=== PATIENT | female | born 1970 | race Caucasian/White ===

== ENCOUNTER 2017-12-05 21:37 | Emergency (ER) | payer OTHER ==
[2017-12-05 23:33] LABS: HIV (1/2) Antibody/Antigen Non-Reactive (NonReactive); Hep C IgG Ab Non-Reactive (NonReactive); Hep C Index 0.11 S/CO (0-0.79)
[2017-12-06 00:37] LABS: HBSAB Concentration 263.52 mIU/mL; Hep B Surf AB Reactive (NonReactive)
== END 2017-12-06 00:02 | disposition home or self-care (01) ==
LOC: ERS 21:37
DX: Z77.21 Contact with and (suspected) exposure to potentially hazardous body fluids (principal)
CPT/HCPCS: 36415; 86706; 86803; 87389; 99283

== ENCOUNTER 2021-11-13 14:17 | Outpatient (CLI) | payer OTHER ==
[2021-11-13 15:16] LABS: #Basophils 0.1 10x3/uL (0.0-0.2); #Eosinphils 0.1 10x3/uL (0.0-0.5); #Monocytes 0.4 10x3/uL (0.0-1.1); #Neutrophils 5.3 10x3/uL (1.5-8.4); %Basophils 0.8 % (0.0-2.0); %Eosinophils 0.8 % (0.0-6.0); %Neutrophils 73.1 % (40.0-75.0); Hemoglobin 12.8 g/dL (12.0-15.5); Mean Corpuscular HGB CONC 31.8 g/dL (32.0-36.0); Mean Corpuscular Hemoglobin 30.2 pg (27.0-33.0); Mean Corpuscular Volume 94.8 fl (81.6-98.3); Mean Platelet Volume 12.9 fl (7.4-10.4); Platelet Count 242 10x3/uL (150-450); RBC Distribution Width 12.2 % (11.5-14.5); Red Blood Cell (RBC) Count 4.24 10x6/uL (3.90-5.03); White Blood Cell (WBC) Count 7.2 10x3/uL (3.5-10.5)
[2021-11-13 15:59] LABS: Bilirubin Neg (Negative); Blood, Urine Negative (Negative); Clarity Clear (Clear); Glucose, Urine (Dipstick) Normal (Negative); Ketone, Urine Negative (Negative); Leukocyte Negative (Negative); Nitrite Negative (Negative); Protein, Urine (Dipstick) Negative (Neg-Trace); Urobilinogen Normal mg/dL (Less than 2); pH, Urine 6.5 (5.0-9.0)
[2021-11-14 10:23] LABS: SARS-CoV-2 PCR by NAA Not Detected (NotDetected)
== END 2021-11-13 14:18 | disposition home or self-care (01) ==
LOC: LABBT 14:17
PROVIDERS: ATTEND Orthopaedic Surgery Hand Surgery
DX: Z01.818 Encounter for other preprocedural examination (principal); Z20.822 Contact with and (suspected) exposure to COVID-19
CPT/HCPCS: 81003; 85025; 93005; 93010; U0003; U0005

== ENCOUNTER 2021-11-16 06:06 | Observation (INO) | payer OTHER ==
[2021-11-14 09:49] VITALS: BMI 29.2
[2021-11-16] MEDS ORDERED: Fentanyl 100 MCG/2 ML VIAL ONE ×3 (06:12→13:26)
[2021-11-16] MEDS ORDERED: Midazolam HCl 2 mg/2 ml Vial ONE ×2 (06:12→07:31)
[2021-11-16] MEDS ORDERED: Thrombin 5000 UNITS/5 ML VIAL ONE ×2 (06:21→08:25)
[2021-11-16] MEDS ORDERED: Neomycin-Polymyxin 1 ML AMP ONE (06:21)
[2021-11-16] MEDS ORDERED: Bacitracin Zinc Ointment 30 gm TUBE ONE (06:21)
[2021-11-16] MEDS ORDERED: EPINEPHrine 1 MG/ML AMP ONE (06:21)
[2021-11-16] MEDS ORDERED: Bupivacaine PF 0.5% 30 ML VIAL ONE (06:21)
[2021-11-16] MEDS ORDERED: PHENYLEPHRINE-NS 100 MCG/ML 10 ML SYRINGE ONE (07:30)
[2021-11-16] MEDS ORDERED: PROPOFOL 200 MG/20 ML VIAL ONE (07:30)
[2021-11-16] MEDS ORDERED: ePHEDrine 50 MG/ML VIAL ONE (07:30)
[2021-11-16] MEDS ORDERED: Dexamethasone 20 MG/5 ML VIAL ONE (07:30)
[2021-11-16] MEDS ORDERED: Ondansetron PF 4 MG/2 ML Vial ONE (07:30)
[2021-11-16] MEDS ORDERED: Lidocaine 1% PF 5 ML VIAL ONE ×2 (07:30)
[2021-11-16] MEDS ORDERED: ceFAZolin 2 GM/DEX 5% 100 ML BAG ONE (07:36)
[2021-11-16] MEDS ORDERED: Non-Formulary Medication 1 EACH PO PRN (13:37)
[2021-11-16] MEDS ORDERED: Ondansetron HCl/PF 4 MG/2 ML Vial IVP PRN (13:45)
[2021-11-16] MEDS ORDERED: Promethazine HCl 25 MG/ML VIAL IM/IV PRN (13:45)
[2021-11-16] MEDS ORDERED: Ibuprofen 600 MG TAB PO PRN (17:23)
[2021-11-16] MEDS ORDERED: Morphine 4 MG/ML VIAL SLOW IVP PRN (17:30)
[2021-11-16] MEDS ORDERED: oxyCODONE/Acetaminophen 5 mg/325 mg Tablet PO PRN (17:31)
[2021-11-16] MEDS: Vancomycin 1 GM in Premix Bag 1 BAG IVPB SCH (18:00)
[2021-11-16] MEDS ORDERED: Amlodipine 5 MG TAB PO SCH (21:00)
[2021-11-16] MEDS ORDERED: Losartan 25 MG TAB PO SCH (21:00)
[2021-11-16] MEDS ORDERED: Famotidine 20 MG TAB PO SCH (21:00)
[2021-11-17] MEDS: Ibuprofen 800 MG TAB PO PRN ×2 (03:36→11:08)
[2021-11-17] MEDS: Vancomycin 1 GM in Premix Bag 1 BAG IVPB SCH (05:54)
[2021-11-17 09:17] VITALS: BP 116/78; TEMP 98.4
== END 2021-11-17 13:09 | disposition home or self-care (01) ==
LOC: SDC 06:06 → SURG A 13:44
PROVIDERS: ADMIT Orthopaedic Surgery Hand Surgery; ATTEND Orthopaedic Surgery Hand Surgery
PROC: 0PSJ04Z Reposition Left Radius with Internal Fixation Device, Open Approach (ICD-10-PCS; principal; 2021-11-16)
PROC: 0PUJ07Z Supplement Left Radius with Autologous Tissue Substitute, Open Approach (ICD-10-PCS; 2021-11-16)
PROC: 0QB30ZZ Excision of Left Pelvic Bone, Open Approach (ICD-10-PCS; 2021-11-16)
PROC: 0MB64ZZ Excision of Left Wrist Bursa and Ligament, Percutaneous Endoscopic Approach (ICD-10-PCS; 2021-11-16)
PROC: 3E0T3BZ Introduction of Anesthetic Agent into Peripheral Nerves and Plexi, Percutaneous Approach (ICD-10-PCS; 2021-11-16)
DX: S63.592A Other specified sprain of left wrist, initial encounter (principal); M25.832 Other specified joint disorders, left wrist; S52.502P Unspecified fracture of the lower end of left radius, subsequent encounter for closed fracture with malunion; M65.88 Other synovitis and tenosynovitis, other site; M94.232 Chondromalacia, left wrist; Z79.899 Other long term (current) drug therapy; Z88.0 Allergy status to penicillin
CPT/HCPCS: 76000; C1713; J0171; J1100; J2250; J2405; J2704; J3010; J3370; J3490; S0020

== ENCOUNTER 2022-08-16 09:31 | Outpatient (CLI) | payer BC ==
[2022-08-16 11:10] LABS: Bilirubin Neg (Negative); Blood, Urine 50 (Negative); Clarity Clear (Clear); Glucose, Urine (Dipstick) Normal (Negative); Ketone, Urine Negative (Negative); Leukocyte 25 (Negative); Nitrite Negative (Negative); Protein, Urine (Dipstick) Negative (Neg-Trace); Specific Gravity, Urine 1.015 (1.005-1.030); Urobilinogen Normal mg/dL (Less than 2)
[2022-08-16 11:27] LABS: WBC/HPF 0-3 HPF (0-3)
[2022-08-16 11:28] LABS: Bacteria/HPF 1+ HPF (None Seen); RBC/HPF 0-3 HPF (0-3); Squamous Epithelial 0-3 HPF (0-3)
== END 2022-08-16 09:32 | disposition home or self-care (01) ==
LOC: LABBT 09:31
PROVIDERS: ATTEND Urology
DX: U07.1 COVID-19 (principal); Z01.818 Encounter for other preprocedural examination; N20.2 Calculus of kidney with calculus of ureter
CPT/HCPCS: 81001; 87086; 87811; 93005; 93010

== ENCOUNTER 2022-08-17 07:40 | Day surgery (SDC) | payer BC ==
[2022-08-16 11:15] VITALS: BMI 27.4
[2022-08-17] MEDS ORDERED: B & O ONE (10:13)
[2022-08-17] MEDS ORDERED: Iopamidol 0 ML ONE (10:13)
[2022-08-17] MEDS ORDERED: Levofloxacin 500 mg/D5W 100 ml Premix Bag ONE (10:23)
[2022-08-17] MEDS ORDERED: Ondansetron PF 4 MG/2 ML Vial ONE ×2 (10:24→10:32)
[2022-08-17] MEDS ORDERED: Metoclopramide HCl 10 MG/2 ML VIAL ONE ×2 (10:24→10:32)
[2022-08-17] MEDS ORDERED: Famotidine/PF 20 mg/2ml Vial ONE (10:24)
[2022-08-17] MEDS ORDERED: fentaNYL Citrate/PF 100 MCG/2 ML SYRINGE ONE (10:24)
[2022-08-17] MEDS ORDERED: Lidocaine 1% MPF 2 ML VIAL ONE (10:32)
[2022-08-17] MEDS ORDERED: Phenylephrine 10 MG/ML VIAL ONE (10:32)
[2022-08-17] MEDS ORDERED: PROPOFOL 200 MG/20 ML VIAL ONE (10:32)
== END 2022-08-17 13:06 | disposition home or self-care (01) ==
LOC: SDC 07:40
PROVIDERS: ATTEND Urology
PROC: 0TC68ZZ Extirpation of Matter from Right Ureter, Via Natural or Artificial Opening Endoscopic (ICD-10-PCS; principal; 2022-08-17)
PROC: 0T768DZ Dilation of Right Ureter with Intraluminal Device, Via Natural or Artificial Opening Endoscopic (ICD-10-PCS; principal; 2022-08-17)
DX: N20.1 Calculus of ureter (principal); Z79.899 Other long term (current) drug therapy; Z88.0 Allergy status to penicillin
CPT/HCPCS: 76000; 82365; 88300; C1713; C1769; C2617; J1956; J2370; J2405; J2704; J2765; Q9967; S0028

== ENCOUNTER 2022-10-12 06:56 | Outpatient (CLI) | payer BC | END 2022-10-12 06:57 | disposition home or self-care (01) | LOC: BICULT 06:56 | PROVIDERS: ATTEND Urology | DX: N20.1 Calculus of ureter (principal) | CPT/HCPCS: 76770 ==

== ENCOUNTER 2024-01-10 16:01 | Outpatient (CLI) | payer BC | END 2024-01-10 16:02 | disposition home or self-care (01) | LOC: BICRAD 16:01 | PROVIDERS: ATTEND Urology | DX: N20.0 Calculus of kidney (principal) | CPT/HCPCS: 74018 ==